=== PATIENT | female | born 1985 | race American Indian/Alaskan Native ===

== ENCOUNTER 2019-12-16 18:26 | Emergency (ER) | payer SELFPAY ==
[2019-12-16] MEDS ORDERED: ACETAMINOPHEN 325 MG TAB ONE (19:18)
[2019-12-16] MEDS ORDERED: ACETAMINOPHEN 325 MG TAB PO ONE (19:20)
--- NOTE | 2019-12-16 20:01 | XRay Report ---
CHEST 2 VIEWS INDICATION / CLINICAL INFORMATION: Cough, fever and difficulty breathing for approximately one week. COMPARISON: 03/21/16. FINDINGS: SUPPORT DEVICES: None. HEART / MEDIASTINUM: The heart size and pulmonary vasculature are normal. LUNGS / PLEURA: There is mild patchy parenchymal disease in both lower lung zones. No pleural effusio n. No pneumothorax. ADDITIONAL FINDINGS: No significant additional findings. IMPRESSION: Mild patchy bibasilar pneumonia. Signer Name: Bobby Acevedo MD Signed: 12/16/2019 7:57 PM Workstation Name: [id number]
[2019-12-17] MEDS ORDERED: SODIUM CHLORIDE 0.9% 1000 ML 1,000 ML IV ONE (00:33)
[2019-12-17] MEDS ORDERED: DOXYCYCLINE HYCLATE 100 MG in SODIUM CHLORIDE 0.9% 250ML 250 ML IV ONE (00:51)
--- NOTE | 2019-12-17 00:53 | Emergency Department Report ---
Minor Respiratory - [facility] Chief Complaint: Dyspnea/Respdistress Stated Complaint: SOB, COUGHING Time Seen by Provider: 12/17/19 00:29 Duration: 1 week Minor Respiratory: Yes Able to Tolerate Fluids, Yes Cough, Yes Shortness of Breath, Yes Fever Other History: 34-year-old -[place] female presents to the emergency room for 1 week history of cough and fever with a T-max of 100.2. Patient c omplains of difficulty breathing. 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 Patient also admits to diarrhea nausea. Patient has a past medical history of hypertension and borderline diabetes. ED Review of Systems ROS: Stated complaint: SOB, COUGHING Other details as noted in HPI ED Past Medical Hx - Past Medical History Hx Hypertension: Yes Hx Diabetes: Yes (BOARDERLINE) - Surgical History Past Surgical History?: No - Social History Smoking Status: Never Smoker Substance Use Type: Alcohol - Medications Home Medications: Home Medications Medication Instructions Recorded Confirmed Last Taken Type Cyclobenzaprine [Flexeril] 10 mg PO TID PRN #15 tablet 03/22/16 Unknown Rx Ibuprofen [Motrin 800 MG tab] 800 mg PO Q8HR PRN #30 tablet 03/22/16 Unknown Rx Albuterol Sulfate [Proair 90 mcg IH QID PRN #1 aer.pow.ba 12/17/19 Unknown Rx Respiclick] Benzonatate [Tessalon Perles] 100 mg PO Q8HR #15 capsule 12/17/19 Unknown Rx Doxycycline Hyclate [Doxycycline 100 mg PO Q12HR #20 tab 12/17/19 Unknown Rx Hyclate TAB] Minor Respiratory Exam - Exam General: Vital signs noted. No distress. Alert and acting appropriately. Neurologic: Alert and oriented, no deficits. Musculoskeletal: Unremarkable. ED Course Vital Signs 12/16/19 12/16/19 19:13 19:43 Temperature 100.4 F H Pulse Rate 101 H Respiratory 18 20 Rate Blood Pressure 118/87 O2 Sat by Pulse 96 Oximetry ED Medical Decision Making - Lab Data Result diagrams: 12/17/19 00:45 12/17/19 00:45 - Radiology Data Radiology results: report reviewed Patient: BRANDON CENTENO MR#: [id number] : 1985 Acct:[id number] Age/Sex: 34 / F ADM Date: 12/16/19 Loc: ED Attending Dr: Ordering Physician: CAMILO RUDOLPH NP Date of Service: 12/16/19 Procedure(s): XR chest routine 2V Accession Number(s): [id number] cc: CAMILO RUDOLPH NP Fluoro Time In Minutes: CHEST 2 VIEWS INDICATION / CLINICAL INFORMATION: Cough, fever and difficulty breathing for approximately one week. COMPARISON: 03/21/16. FINDINGS: SUPPORT DEVICES: None. HEART / MEDIASTINUM: The heart size and pulmonary vasculature are normal. LUNGS / PLEURA: There is mild patchy parenchymal disease in both lower lung zones. No pleural effusion. No pneumothorax. ADDITIONAL FINDINGS: No significant additional findings. IMPRESSION: Mild patchy bibasilar pneumonia. Signer Name: Bobby Acevedo MD Signed: 12/16/2019 7:57 PM Workstation Name: [id number] Transcribed By: RT Dictated By: Bobby Acevedo MD Electronically Authenticated By: Bobby Acevedo MD Signed Date/Time: 12/16/191956 DD/ 53 TD/TT: - Medical Decision Making 34-year-old -[place] female presents to the emergency room for 1 week history of cough and fever with a T-max of 100.2. Patient complains of difficulty breathing. 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 Patient also admits to diarrhea nausea. Patient has a past medical history of hypertension and borderline diabetes. CBC, CMP, rapid flu, IV, normal saline, doxycycline 100 mg IV. Chest x-ray shows shows bibasilar infiltrates. Patient will be placed on covid-19 worksheet. Negative flu. Patient will be placed on 14-day quarantine. She is to complete the doxycycline 100 mg p.o. twice daily for 10 days. Patient will be given an albuterol inhaler for shortness of breath and cough. Patient be given a prescription for Tessalon Perles. Patient is to follow-up with her primary care provider by phone. Patient is to return back to the emergency room if her symptoms get worse. Patient verbalized understanding Critical care attestation.: If time is entered above; I have spent that time in minutes in the direct care of this critically ill patient, excluding procedure time. ED Disposition Clinical Impression: Pneumonia Disposition: DC-01 TO HOME OR [facility] Is pt being admited?: No Does the pt Need Aspirin: No Condition: Stable Instructions: Bacterial Pneumonia (ED) Additional Instructions: Complete antibiotics as prescribed. Take Tessalon Perles as needed for cough. Use pro-air inhaler as needed for shortness of breath and cough. Please contact your primary care provider and inform them that you had been evaluated in ER for concern for Covid-19. Please return to the emergency room if your symptoms get worse. You are placed on a 14-day quarantine. Be expected to be contact by the health department. Prescriptions: Doxycycline Hyclate [Doxycycline Hyclate TAB] 100 mg PO Q12HR #20 tab Albuterol Sulfate [Proair Respiclick] 90 mcg IH QID PRN #1 aer.pow.ba PRN Reason: Shortness Of Breath Benzonatate [Tessalon Perles] 100 mg PO Q8HR #15 capsule Referrals: PRIMARY CARE, [Primary Care Provider] - 3-5 Days Forms: Work/School Release Form(ED)
[2019-12-17 01:01] LABS: Basophils % (Auto) 0.3 % (0.0-1.8); Eosinophils % (Auto) 0.2 % (0.0-4.3); Hematocrit 42.5 % (30.3-42.9); Hemoglobin 13.6 gm/dl (10.1-14.3); Lymphocytes # (Auto) 1.6 K/mm3 (1.2-5.4); Lymphocytes % (Auto) 29.3 % (13.4-35.0); Mean Corpuscular HGB Conc 32 % (30-34); Mean Corpuscular Volume 75 fl (79-97); Monocytes # (Auto) 0.6 K/mm3 (0.0-0.8); Monocytes % (Auto) 12.1 % (0.0-7.3); Platelet Count 208 K/mm3 (140-440); Red Blood Count 5.65 M/mm3 (3.65-5.03); Red Cell Distribution Width 17.4 % (13.2-15.2)
[2019-12-17] MEDS ORDERED: ONDANSETRON 4 MG/2 ML INJ IV ONE (01:06)
[2019-12-17 01:24] LABS: Alanine Aminotransferase 32 units/L (7-56); Albumin 3.9 g/dL (3.9-5); BUN/Creatinine Ratio 16; Blood Urea Nitrogen 13 mg/dL (7-17); Calcium 8.8 mg/dL (8.4-10.2); Hemolysis Index 5
[2019-12-17 04:54] VITALS: BP 132/76
== END 2019-12-17 03:23 | disposition home or self-care (01) ==
LOC: ED 18:26
DX: J18.9 Pneumonia, unspecified organism (principal); E11.9 Type 2 diabetes mellitus without complications; I10 Essential (primary) hypertension; Z79.899 Other long term (current) drug therapy
CPT/HCPCS: 36415; 71046; 80053; 82140; 85025; 87400; 96365; 96375; 99284; J2405; J7030; J7050